=== PATIENT | male | born 1995 | race African-American/Black ===

== ENCOUNTER 2021-10-27 12:51 | Inpatient (IN) | payer OTHER, SELFPAY ==
--- NOTE | 2021-10-27 13:06 | ED.GENADULT ---
HPI - General Adult General Chief complaint: Psychiatric Symptoms Stated complaint: Crisis Time Seen by Provider: 10/27/21 13:06 Source: patient Mode of arrival: ambulatory Limitations: no limitations History of Present Illness HPI narrative: Patient is a 25 year old male presenting to the emergency department today on a section 12 for psychiatric admission. Patient states that he has a history of PTSD and has been off of his medications for 6 months. States that he has had some aggressive thoughts. Patient denies any dizziness, lightheadedness, abdominal pain, nausea, vomiting, fever, chills, blurry vision, double vision, loss of vision, chest pain, difficulty breathing, shortness of breath, back pain, night sweats, pain with urination, increased urinary frequency, increased urinary urgency, blood in his urine or stool, syncope or a near syncopal episode, recent trauma or falls, bowel incontinence, bladder incontinence, bowel retention, bladder retention, or any other complaints at this time. Onset (ago): month(s) Relieving factors: medication Exacerbating factors: none Associated symptoms: denies other symptoms Treatments prior to arrival: none Related Data Home Medications Medication Instructions Recorded Confirmed prazosin 2 mg capsule 1 cap PO BEDTIME 10/27/21 10/27/21 sertraline 100 mg tablet 1 tab PO QAM 10/27/21 10/27/21 trazodone 50 mg tablet 1 tab PO BEDTIME PRN 10/27/21 10/27/21 Allergies Allergy/AdvReac Type Severity Reaction Status Date / Time corn Allergy Hives Verified 10/27/21 13:48 Review of Systems Constitutional: Constitutional: Reports no additional constitutional complaints, Denies chills, Denies fever(s) and Denies night sweats Eyes: Eyes: Reports no additional eye complaints, Denies blurry vision, Denies change in vision, Denies diplopia, Denies eye discharge, Denies loss of vision and Denies eye pain ENT: Denies dizziness Cardiovascular: Cardiovascular: Reports no additional cardiovascular complaints, Denies chest pain, Denies lightheadedness, Denies Loss of Consciousness and Denies dyspnea Respiratory: Respiratory: Reports no additional respiratory complaints and Denies dyspnea Gastrointestinal: Gastrointestinal: Reports no additional gastrointestinal complaints, Denies abdominal pain, Denies melena, Denies hematochezia, Denies change in bowel habits and Denies change in stool character Genitourinary: Genitourinary: Reports no additional male genitourinary complaints, Denies hematuria, Denies oliguria, Denies difficulty urinating, Denies dysuria, Denies urinary frequency, Denies urinary hesitancy, Denies urinary incontinence and Denies urinary urgency Musculoskeletal: Musculoskeletal: Reports no additional musculoskeletal complaints, Denies numbness and Denies tingling Neurologic: Denies dizziness, Denies loss of vision, Denies numbness and Denies tingling Psychiatric: Psychiatric: Reports no additional psychiatric complaints, Reports irritability and Reports homicidal ideation Endocrine: Endocrine: Reports no additional endocrine complaints Hematologic/Lymphatic: Hematologic/Lymphatic: Reports no additional hematologic/lymphatic complaints Allergic/Immunologic: Allergic/Immunologic: Reports no additional allergic/immunologic complaints [facility] Past Medical History Attestation statement: The following information was validated with the patient. Source: old records reviewed Social History Social History Alcohol intake: unknown Patient Tobacco Use Status: Never used Tobacco Smoked in Last 30 Days: No Use of substances other than those prescribed or required for medical reasons: No Last Used Substance: Unknown Any prior treatment program specific to substance use: No Advance Directives: No Advance Directives Information Provided: No Physical Exam ED Vital Signs: Vital Signs - 24 hr 10/27/21 13:29 Temperature 98.3 F Pulse Rate 68 Respiratory Rate 18 Blood Pressure 121/61 Pulse Oximetry 96 BMI result Body Mass Index 45.3 Const General: cooperative, no acute distress, alert and awake Nutritional Appearance: well nourished Orientation/consciousness: patient oriented x3 Limitations: no limitations [facility] Head: Yes normal to inspection and Yes atraumatic Ears: hearing grossly normal bilaterally and external ears normal General nose exam: Normal external nose present, no nasal discharge noted and no epistaxis Face and sinus: Yes normal facial exam, No abrasion and No laceration Mouth: Normal oral and palatal mucosa present, no drooling and no muffled voice Eyes General: appearance normal, both eyes and all related structures Periorbital: periorbital findings normal Eyelids: Yes eyelids normal Conjunctivae: conjunctivae normal Pupils: Equal, round and reactive pupils present EOM: EOMs intact bilaterally Neck Neck: Yes normal visual inspection, Yes full ROM and Yes no lymphadenopathy Chest Chest palpation & inspection: normal inspection of the chest Resp Effort & Inspection: normal respiratory effort and able to speak in complete sentences Auscultation: clear to auscultation bilaterally Cardio Rate: regular rate Rhythm: regular rhythm GI Inspection: Yes normal to inspection Neuro General: patient oriented x3 and moves all extremities Cranial nerves: Yes Equal, round and reactive pupils present Cognition (Neuro): normal cognition Motor exam (neuro): 5/5 motor strength present throughout Sensory Exam: Normal double simultaneous stimulation for sensation Coordination: [id number] test normal Extrem General: Yes normal to inspection, Yes full ROM and Yes capillary refill normal Psych Appearance: grossly normal Mental Status: mental status grossly normal Speech and movement: Normal speech and movement present Affect: Labile affect present Attitude: cooperative Thought process: Normal thought process present Thought content: delusions Insight: Fair insight present (Psych) Medical Decision Making MDM Narrative Medical decision making narrative: Patient is a 25 year old male presenting to the emergency department today with a section 12 for psychiatric placement. Patient's physical exam was unremarkable. Patient's blood work is pending. Patient's urine tox screen was negative. I explained my physical exam findings as well as all test results to the patient. I answered all questions asked by the patient. Patient will be placed under physician observation after labs are completed while the bed search continues. Differential Diagnosis Differential Diagnosis: PTSD Medical Records Medical records reviewed: Yes I reviewed the patient's medical records. Lab Data Lab results reviewed: Yes I reviewed the patient's lab results. Labs: Lab Results 10/27/21 10/27/21 Range/Units 13:54 13:54 Urine Opiates Screen Not Detected (Not Detect) Urine Fentanyl Screen Not Detected (Not Detect) Ur Barbiturates Screen Not Detected (Not Detect) Ur Phencyclidine Scrn Not Detected (Not Detect) Ur Amphetamines Screen Not Detected (Not Detect) U Benzodiazepines Scrn Not Detected (Not Detect) Urine Cocaine Screen Not Detected (Not Detect) U Marijuana (THC) Screen Not Detected (Not Detect) COVID-19 (MAO) Negative (Negative) COVID-19 Clin Com See Note Discharge Plan Discharge Clinical Impression: Post traumatic stress disorder Patient Disposition: Still a Patient Instructions: Post Traumatic Stress Disorder (ED) Prescriptions: No Action trazodone 50 mg tablet 1 tab PO BEDTIME PRN (Reason: Insomnia) 0RF sertraline 100 mg tablet 1 tab PO QAM 0RF prazosin 2 mg capsule 1 cap PO BEDTIME 0RF Print Language: Liberian
[2021-10-27 13:29] VITALS: BP 121/61; PULSE 68; RESP 18; TEMP 36.8; O2SAT 96; BMI 45.3
[2021-10-27 14:30] LABS: COVID-19 Test Negative (Negative); IDNOW Serial# 16C4AD1C
[2021-10-27 14:57] LABS: Amphetamine Screen Urine Not Detected (Not Detect); Barbiturates, Urine Not Detected (Not Detect); Benzodiazepines Screen Urine Not Detected (Not Detect); Cannabinoid Screen Urine Not Detected (Not Detect); Cocaine Screen Urine Not Detected (Not Detect); Fentanyl, urine Not Detected (Not Detect); Opiate Screen Urine Not Detected (Not Detect); Phencyclidine Screen Urine Not Detected (Not Detect)
[2021-10-27 17:37] VITALS: BP 116/61; PULSE 59; RESP 16; TEMP 37.2; O2SAT 99
[2021-10-27 18:01] LABS: MANUAL DIFF FLAG NO
[2021-10-27 18:05] LABS: Basophils Absolute Auto 0.1 X10*3/uL (0.0-0.2); Basophils Percent Auto 0.7 % (0-2); Eosinophils Absolute Auto 0.3 X10*3/uL (0.0-0.4); Eosinophils Percent Auto 4.2 % (0-4); Hematocrit 44.4 % (42.0-52.0); Hemoglobin 14.3 g/dl (14.0-18.0); Imm Gran Abs Auto 0.03 X10*3/uL (0.00-0.03); Imm Gran Pct Auto 0.4 % (0.0-0.4); Lymphocytes Absolute Auto 2.3 X10*3/uL (1.2-4.9); Lymphocytes Percent Auto 31.8 % (20-40); Mean Corpuscular HGB Conc 32.2 g/dl (31.0-36.0); Mean Corpuscular Hemoglobin 28.1 pg (27.0-33.0); Mean Corpuscular Volume 87.2 fL (80.0-98.0); Monocytes Absolute Auto 0.5 X10*3/uL (0.1-1.2); Monocytes Percent Auto 7.3 % (2-11); Neutrophils Absolute Auto 4.1 x10*3/uL (2.0-8.3); Neutrophils Percent Auto 55.6 % (45-73); Platelet Count 232 X10*3/uL (160-400); Red Blood Count 5.09 X10*6/uL (4.60-5.80); Red Cell Distribution Width 11.8 % (11.0-16.0); White Blood Count 7.3 X10*3/uL (4.8-10.8)
[2021-10-27 18:18] LABS: Ethanol < 10 mg/dL
[2021-10-27 18:21] LABS: Alanine Aminotransferase 17 U/L (0-40); Albumin Level 4.3 g/dL (3.5-5.0); Alkaline Phosphatase 66 U/L (39-117); Anion Gap 12 (12-20); Aspartate Amino Transferase 17 U/L (5-37); Blood Urea Nitrogen 19 mg/dL (9-16); Calcium 9.8 mg/dL (8.4-10.2); Carbon Dioxide 24 mmol/L (22-29); Chloride 107 mmol/L (96-108); Creatinine Clr Calc Pharmacy 113.9; Estimated Glomerular Filt Rate > 60; Glucose Random 73 mg/dL (60-115); Potassium 4.2 mmol/L (3.3-5.1); Sodium 139 mmol/L (135-145); Total Protein 7.5 g/dL (6.5-8.0)
[2021-10-27 23:13] VITALS: BP 127/83; PULSE 58; RESP 16; O2SAT 99
[2021-10-27 23:55] VITALS: BP 128/66; PULSE 65; RESP 18; TEMP 36.6; O2SAT 99
[2021-10-28] MEDS: traZODone HCL 50 MG TABLET PO ×2 (00:51→20:18)
[2021-10-28] MEDS: Prazosin HCL 1 MG CAPSULE 2 MG PO ×2 (00:51→20:18)
--- NOTE | 2021-10-28 01:43 | PC.ADMIT ---
Jude is a 25 year old male, who was self referred to the hospital for safety due to increased anger issues and thoughts of HI towards specific people. Patient reported no specific plan was in place. Patient reported poor sleep and apatite Patient reports he feels his impulsively is a concern for him as he does not wish to harm anyone or become involved in any legal issues. He reports his learned coping skills are no longer working for him and he has not been taking medications since June 2021. On the unit patient was cooperative and pleasant during admission. Patient reports mild anxiety and depression. Patient denies any SI, AH, or VH. Patient does still indorse some HI thoughts towards specific people and stated That's why I came into the hospital, to help me stop having these thoughts . Utox-Negative and Covid Negative.
[2021-10-28 08:30] VITALS: BP 116/58; PULSE 74; RESP 18; TEMP 36.3; O2SAT 98
[2021-10-28 08:54] LABS: Cholesterol 154 mg/dL; HDL Cholesterol 43 mg/dL; LDL Cholesterol Calculated 92 mg/dl; Magnesium 2.4 mg/dL (1.6-2.6); Triglycerides 95 mg/dL
[2021-10-28 09:16] LABS: Free T4 (Free Thyroxine) 0.89 ng/dL (0.71-1.85)
[2021-10-28] MEDS: Sertraline HCL 100 MG TABLET PO (09:42)
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
[2021-10-28 18:00] VITALS: BP 132/80; PULSE 76; RESP 16; TEMP 36.7; O2SAT 98
[2021-10-29 03:23] LABS: Estimated Average Glucose 77 mg/dL; Hemoglobin A1c % 4.3 %
[2021-10-29 04:28] LABS: Folate 9.2 ng/mL (> or = 4.0); Vitamin B12 535 pg/mL (200-900)
[2021-10-29] MEDS: Sertraline HCL 50 MG TABLET 150 MG PO (09:11)
[2021-10-29 09:13] VITALS: BP 141/67; PULSE 83; RESP 18; TEMP 36.7; O2SAT 94
--- NOTE | 2021-10-29 14:42 | HO.PSYCHPN ---
Subjective Subjective Date of Service: 10/29/21 Reason For Visit: HI Subjective Notes: Conditional Voluntary Interim History: Pt reports feeling less overwhelmed, he reports improved sleep- but did wake up at 3am and couldn't go back to bed. He continues to endorse depressed mood, anhedonia, low energy. He denies HI. he also denies SI- but worries that it is too soon to tell how much better he is. He feels safe in the unit. No signs of psychosis. Medication Compliance: Yes Side effects from medications: No Review of Systems Review of Systems unremarkable Constitutional: Reports no additional constitutional complaints, Denies chills, Denies fever(s) and Denies night sweats Eyes: Reports no additional eye complaints, Denies blurry vision, Denies change in vision, Denies diplopia, Denies eye discharge, Denies loss of vision and Denies eye pain Denies dizziness Cardiovascular: Reports no additional cardiovascular complaints, Denies chest pain, Denies lightheadedness, Denies Loss of Consciousness and Denies dyspnea Respiratory: Reports no additional respiratory complaints and Denies dyspnea Gastrointestinal: Reports no additional gastrointestinal complaints, Denies abdominal pain, Denies melena, Denies hematochezia, Denies change in bowel habits and Denies change in stool character Genitourinary: Reports no additional male genitourinary complaints, Denies hematuria, Denies oliguria, Denies difficulty urinating, Denies dysuria, Denies urinary frequency, Denies urinary hesitancy, Denies urinary incontinence and Denies urinary urgency Musculoskeletal: Reports no additional musculoskeletal complaints, Denies numbness and Denies tingling Denies dizziness, Denies loss of vision, Denies numbness and Denies tingling Psychiatric: Reports no additional psychiatric complaints, Reports irritability and Reports homicidal ideation Endocrine: Reports no additional endocrine complaints Hematologic/Lymphatic: Reports no additional hematologic/lymphatic complaints Allergic/Immunologic: Reports no additional allergic/immunologic complaints Mental Status Exam Mental Status Exam Narrative: Alert, oriented x 3. Speech: clear, normal rate/rhyth. volume, spontaneous. No psychomotor agitation or retardation noted. TP: linear. TC: no signs of psychosis. Delusions: none. No VH/AH. Pleasant and engaged. Appropriately dressed and good hygiene. Endorses some anxiety and low mood. No SI. Endorses intermittent irritability thoughts of hurting others but not inside of the hospital. Feels supported. No psychosis. Insight and judgment good Diagnostics Vital Signs (24Hr): Vital Signs - 24 hr 10/28/21 18:00 10/29/21 09:13 Temperature 98.0 F 98.0 F Pulse Rate 76 83 Respiratory Rate 16 18 Blood Pressure 132/80 141/67 H Pulse Oximetry 98 94 BMI result Body Mass Index 45.3 Labs Results: 10/27/21 17:57 10/27/21 17:57 Labs: Laboratory Results - last 48 hr 10/27/21 10/27/21 10/27/21 17:57 17:57 17:57 WBC 7.3 RBC 5.09 Hgb 14.3 Hct 44.4 MCV 87.2 MCH 28.1 MCHC 32.2 RDW 11.8 Plt Count 232 MPV 9.0 L Immature Gran % (Auto) 0.4 Neut % (Auto) 55.6 Lymph % (Auto) 31.8 [place] % (Auto) 7.3 Eos % (Auto) 4.2 H Baso % (Auto) 0.7 Lymph # (Auto) 2.3 [place] # (Auto) 0.5 Eos # (Auto) 0.3 Baso # (Auto) 0.1 Abs Immat Gran (auto) 0.03 Absolute Neuts (auto) 4.1 Absolute Nucleated RBC 0.000 Nucleated RBC % (auto) 0.0 Sodium 139 Potassium 4.2 Chloride 107 Carbon Dioxide 24 Anion Gap 12 BUN 19 H Creatinine 1.15 Estim Creat Clear Calc 113.9 Estimated GFR > 60 Random Glucose 73 Estimat Average Glucose Hemoglobin A1c % Calcium 9.8 Magnesium Total Bilirubin 1.0 AST 17 ALT 17 Alkaline Phosphatase 66 Total Protein 7.5 Albumin 4.3 Triglycerides Cholesterol LDL Cholesterol, Calc HDL Cholesterol Vitamin B12 Folate TSH Free T4 Ethyl Alcohol < 10 10/28/21 10/28/21 10/28/21 08:07 08:07 08:07 WBC RBC Hgb Hct MCV MCH MCHC RDW Plt Count MPV Immature Gran % (Auto) Neut % (Auto) Lymph % (Auto) [place] % (Auto) Eos % (Auto) Baso % (Auto) Lymph # (Auto) [place] # (Auto) Eos # (Auto) Baso # (Auto) Abs Immat Gran (auto) Absolute Neuts (auto) Absolute Nucleated RBC Nucleated RBC % (auto) Sodium Potassium Chloride Carbon Dioxide Anion Gap BUN Creatinine Estim Creat Clear Calc Estimated GFR Random Glucose Estimat Average Glucose 77 Hemoglobin A1c % 4.3 Calcium Magnesium 2.4 Total Bilirubin AST ALT Alkaline Phosphatase Total Protein Albumin Triglycerides 95 Cholesterol 154 LDL Cholesterol, Calc 92 HDL Cholesterol 43 Vitamin B12 535 Folate 9.2 TSH 0.40 Free T4 0.89 Ethyl Alcohol Medications Medications Current Medications Acetaminophen (Acetaminophen 325 Mg Tablet) 650 mg PO Q6H PRN PRN Reason: Headache/Pain Mild Scale (1-3) Al Hydroxide/Mg Hydroxide (Magnesium Hydrox/Alum Hydrox 30 Ml Oral.Susp) 30 ml PO Q6H PRN PRN Reason: Heartburn/Nausea Hydroxyzine HCl (Hydroxyzine Hcl 25 Mg Tablet) 25 mg PO Q6H PRN PRN Reason: Anxiety Magnesium Hydroxide (Milk Of Magnesia 30 Ml Oral.Susp) 30 ml PO DAILY PRN PRN Reason: Constipation Prazosin HCl (Prazosin Hcl 1 Mg Capsule) 2 mg PO BEDTIME MEHRDAD; Protocol Last Admin: 10/28/21 20:18 Dose: 2 mg Documented by: Sertraline HCl (Sertraline Hcl 50 Mg Tablet) 150 mg PO DAILY MEHRDAD Last Admin: 10/29/21 09:11 Dose: 150 mg Documented by: Trazodone HCl (Trazodone Hcl 50 Mg Tablet) 50 mg PO BEDTIME PRN PRN Reason: Insomnia Last Admin: 10/28/21 20:18 Dose: 50 mg Documented by: Allergies Allergies Allergy/AdvReac Type Severity Reaction Status Date / Time corn Allergy Hives Verified 10/27/21 13:48 Assessment & Plan Assessment & Plan (1) Post traumatic stress disorder: Status: Acute Code(s): F43.10 - Post-traumatic stress disorder, unspecified Assessment and Plan: presents with history PTSD and recent lower mood, worsening anxiety, worsening hypervigilance, irritability and homicidal thoughts. contributing factors are being off medications, reasonably new job and relationship ending. Is engaged and does want treatment. Appears to show some response in the past to prazosin 2mg and sertraline 150mg. May also benefit from low-dose Seroquel for mood forward/ anxiety and PTSD symptoms. He would like to discuss this with his primary team. PLAN 1. continue sertraline 150mg po daily, prazosin 2mg po qhs. trazodone 50mg po qhs. 2. obtain collateral information 3. aftercare planning- once stable wants to continue OP psych tx. I spent minutes with the patient and/or on the patient floor today, greater than?50% of which was spent counseling/coordinating care. Reason for contiued inpatient stay Substantial Risk for: harm to self
[2021-10-29 18:00] VITALS: BP 140/76; PULSE 79; RESP 18; TEMP 36.9; O2SAT 96
--- NOTE | 2021-10-29 19:05 | PC.NURSE ---
Patient offered flu vaccine to which he declined.
[2021-10-29] MEDS: Prazosin HCL 1 MG CAPSULE 2 MG PO (20:15)
[2021-10-29] MEDS: traZODone HCL 50 MG TABLET PO (20:15)
[2021-10-30 08:00] VITALS: BP 125/76; PULSE 72; RESP 16; TEMP 36.6; O2SAT 94
[2021-10-30] MEDS: Sertraline HCL 50 MG TABLET 150 MG PO (09:07)
[2021-10-30] MEDS: Magnesium Hydrox/Alum Hydrox 30 ML ORAL.SUSP PO (13:04)
--- NOTE | 2021-10-30 14:44 | HO.PSYCHPN ---
Subjective Subjective Date of Service: 10/30/21 Reason For Visit: HI Subjective Notes: Conditional Voluntary Interim History: Pt reports feeling better, in that he is less depressed, no SI/HI. No signs of VH/AH. He reports sleeping and eating well. He reports he spoke with sister who is very supportive. He denies any side effects. Plan for d/c Friday continue OP psych appointments. Medication Compliance: Yes Side effects from medications: No Review of Systems Review of Systems unremarkable Constitutional: Reports no additional constitutional complaints, Denies chills, Denies fever(s) and Denies night sweats Eyes: Reports no additional eye complaints, Denies blurry vision, Denies change in vision, Denies diplopia, Denies eye discharge, Denies loss of vision and Denies eye pain Denies dizziness Cardiovascular: Reports no additional cardiovascular complaints, Denies chest pain, Denies lightheadedness, Denies Loss of Consciousness and Denies dyspnea Respiratory: Reports no additional respiratory complaints and Denies dyspnea Gastrointestinal: Reports no additional gastrointestinal complaints, Denies abdominal pain, Denies melena, Denies hematochezia, Denies change in bowel habits and Denies change in stool character Genitourinary: Reports no additional male genitourinary complaints, Denies hematuria, Denies oliguria, Denies difficulty urinating, Denies dysuria, Denies urinary frequency, Denies urinary hesitancy, Denies urinary incontinence and Denies urinary urgency Musculoskeletal: Reports no additional musculoskeletal complaints, Denies numbness and Denies tingling Denies dizziness, Denies loss of vision, Denies numbness and Denies tingling Psychiatric: Reports no additional psychiatric complaints, Reports irritability and Reports homicidal ideation Endocrine: Reports no additional endocrine complaints Hematologic/Lymphatic: Reports no additional hematologic/lymphatic complaints Allergic/Immunologic: Reports no additional allergic/immunologic complaints Mental Status Exam Mental Status Exam Narrative: Alert, oriented x 3. Speech: clear, normal rate/rhyth. volume, spontaneous. No psychomotor agitation or retardation noted. TP: linear. TC: no signs of psychosis. Delusions: none. No VH/AH. Pleasant and engaged. Appropriately dressed and good hygiene. Endorses some anxiety and low mood. No SI. Endorses intermittent irritability thoughts of hurting others but not inside of the hospital. Feels supported. No psychosis. Insight and judgment good Diagnostics Vital Signs (24Hr): Vital Signs - 24 hr 10/29/21 18:00 10/30/21 08:00 Temperature 98.4 F 97.9 F Pulse Rate 79 72 Respiratory Rate 18 16 Blood Pressure 140/76 H 125/76 Pulse Oximetry 96 94 BMI result Body Mass Index 45.3 Labs Results: 10/27/21 17:57 10/27/21 17:57 Labs: Laboratory Results - last 48 hr 10/28/21 10/28/21 08:07 08:07 Estimat Average Glucose 77 Hemoglobin A1c % 4.3 Vitamin B12 535 Folate 9.2 Medications Medications Current Medications Acetaminophen (Acetaminophen 325 Mg Tablet) 650 mg PO Q6H PRN PRN Reason: Headache/Pain Mild Scale (1-3) Al Hydroxide/Mg Hydroxide (Magnesium Hydrox/Alum Hydrox 30 Ml Oral.Susp) 30 ml PO Q6H PRN PRN Reason: Heartburn/Nausea Last Admin: 10/30/21 13:04 Dose: 30 ml Documented by: Hydroxyzine HCl (Hydroxyzine Hcl 25 Mg Tablet) 25 mg PO Q6H PRN PRN Reason: Anxiety Magnesium Hydroxide (Milk Of Magnesia 30 Ml Oral.Susp) 30 ml PO DAILY PRN PRN Reason: Constipation Prazosin HCl (Prazosin Hcl 1 Mg Capsule) 2 mg PO BEDTIME MEHRDAD; Protocol Last Admin: 10/29/21 20:15 Dose: 2 mg Documented by: Sertraline HCl (Sertraline Hcl 50 Mg Tablet) 150 mg PO DAILY MEHRDAD Last Admin: 10/30/21 09:07 Dose: 150 mg Documented by: Trazodone HCl (Trazodone Hcl 50 Mg Tablet) 50 mg PO BEDTIME PRN PRN Reason: Insomnia Last Admin: 10/29/21 20:15 Dose: 50 mg Documented by: Allergies Allergies Allergy/AdvReac Type Severity Reaction Status Date / Time corn Allergy Hives Verified 10/27/21 13:48 Assessment & Plan Assessment & Plan (1) Post traumatic stress disorder: Status: Acute Code(s): F43.10 - Post-traumatic stress disorder, unspecified Assessment and Plan: presents with history PTSD and recent lower mood, worsening anxiety, worsening hypervigilance, irritability and homicidal thoughts. contributing factors are being off medications, reasonably new job and relationship ending. Is engaged and does want treatment. Appears to show some response in the past to prazosin 2mg and sertraline 150mg. May also benefit from low-dose Seroquel for mood forward/ anxiety and PTSD symptoms. He would like to discuss this with his primary team. PLAN 1. continue sertraline 150mg po daily, prazosin 2mg po qhs. trazodone 50mg po qhs. 2. obtain collateral information 3. aftercare planning- once stable wants to continue OP psych tx. 10/30- continue current medications. d/c 11/02/21 with OP psych appointments, will return home. I spent minutes with the patient and/or on the patient floor today, greater than?50% of which was spent counseling/coordinating care. Reason for contiued inpatient stay Substantial Risk for: rapid decompensation
[2021-10-30 21:00] VITALS: BP 135/87; PULSE 78; RESP 18; TEMP 36.8; O2SAT 98
[2021-10-30] MEDS: Prazosin HCL 1 MG CAPSULE 2 MG PO (22:12)
[2021-10-30] MEDS: traZODone HCL 50 MG TABLET PO (22:12)
[2021-10-31 09:29] VITALS: BP 118/71; PULSE 110; RESP 16; TEMP 36.6; O2SAT 96
[2021-10-31] MEDS: Sertraline HCL 50 MG TABLET 150 MG PO (09:30)
--- NOTE | 2021-10-31 15:53 | HO.PSYCHPN ---
Subjective Subjective Date of Service: 10/31/21 Reason For Visit: HI Subjective Notes: Conditional Voluntary Interim History: Pt presents as brigth, non labile. He reports significant improvement in depressed mood. He reports he is sleeping and eating well. He denies SI/HI. He has been visible in the unit, no behavioral concerns. Medication Compliance: Yes Side effects from medications: No Review of Systems Review of Systems unremarkable Constitutional: Reports no additional constitutional complaints, Denies chills, Denies fever(s) and Denies night sweats Eyes: Reports no additional eye complaints, Denies blurry vision, Denies change in vision, Denies diplopia, Denies eye discharge, Denies loss of vision and Denies eye pain Denies dizziness Cardiovascular: Reports no additional cardiovascular complaints, Denies chest pain, Denies lightheadedness, Denies Loss of Consciousness and Denies dyspnea Respiratory: Reports no additional respiratory complaints and Denies dyspnea Gastrointestinal: Reports no additional gastrointestinal complaints, Denies abdominal pain, Denies melena, Denies hematochezia, Denies change in bowel habits and Denies change in stool character Genitourinary: Reports no additional male genitourinary complaints, Denies hematuria, Denies oliguria, Denies difficulty urinating, Denies dysuria, Denies urinary frequency, Denies urinary hesitancy, Denies urinary incontinence and Denies urinary urgency Musculoskeletal: Reports no additional musculoskeletal complaints, Denies numbness and Denies tingling Denies dizziness, Denies loss of vision, Denies numbness and Denies tingling Psychiatric: Reports no additional psychiatric complaints, Reports irritability and Reports homicidal ideation Endocrine: Reports no additional endocrine complaints Hematologic/Lymphatic: Reports no additional hematologic/lymphatic complaints Allergic/Immunologic: Reports no additional allergic/immunologic complaints Mental Status Exam Mental Status Exam Narrative: Alert, oriented x 3. Speech: clear, normal rate/rhyth. volume, spontaneous. No psychomotor agitation or retardation noted. TP: linear. TC: no signs of psychosis. Delusions: none. No VH/AH. Pleasant and engaged. Appropriately dressed and good hygiene. Endorses some anxiety and low mood. No SI. Endorses intermittent irritability thoughts of hurting others but not inside of the hospital. Feels supported. No psychosis. Insight and judgment good Diagnostics Vital Signs (24Hr): Vital Signs - 24 hr 10/30/21 21:00 10/31/21 09:29 Temperature 98.3 F 97.8 F Pulse Rate 78 110 H Respiratory Rate 18 16 Blood Pressure 135/87 118/71 Pulse Oximetry 98 96 BMI result Body Mass Index 45.3 Labs Results: 10/27/21 17:57 10/27/21 17:57 Medications Medications Current Medications Acetaminophen (Acetaminophen 325 Mg Tablet) 650 mg PO Q6H PRN PRN Reason: Headache/Pain Mild Scale (1-3) Al Hydroxide/Mg Hydroxide (Magnesium Hydrox/Alum Hydrox 30 Ml Oral.Susp) 30 ml PO Q6H PRN PRN Reason: Heartburn/Nausea Last Admin: 10/30/21 13:04 Dose: 30 ml Documented by: Hydroxyzine HCl (Hydroxyzine Hcl 25 Mg Tablet) 25 mg PO Q6H PRN PRN Reason: Anxiety Magnesium Hydroxide (Milk Of Magnesia 30 Ml Oral.Susp) 30 ml PO DAILY PRN PRN Reason: Constipation Prazosin HCl (Prazosin Hcl 1 Mg Capsule) 2 mg PO BEDTIME MEHRDAD; Protocol Last Admin: 10/30/21 22:12 Dose: 2 mg Documented by: Sertraline HCl (Sertraline Hcl 50 Mg Tablet) 150 mg PO DAILY MEHRDAD Last Admin: 10/31/21 09:30 Dose: 150 mg Documented by: Trazodone HCl (Trazodone Hcl 50 Mg Tablet) 50 mg PO BEDTIME PRN PRN Reason: Insomnia Last Admin: 10/30/21 22:12 Dose: 50 mg Documented by: Allergies Allergies Allergy/AdvReac Type Severity Reaction Status Date / Time corn Allergy Hives Verified 10/27/21 13:48 Assessment & Plan Assessment & Plan (1) Post traumatic stress disorder: Status: Acute Code(s): F43.10 - Post-traumatic stress disorder, unspecified Assessment and Plan: presents with history PTSD and recent lower mood, worsening anxiety, worsening hypervigilance, irritability and homicidal thoughts. contributing factors are being off medications, reasonably new job and relationship ending. Is engaged and does want treatment. Appears to show some response in the past to prazosin 2mg and sertraline 150mg. May also benefit from low-dose Seroquel for mood forward/ anxiety and PTSD symptoms. He would like to discuss this with his primary team. PLAN 1. continue sertraline 150mg po daily, prazosin 2mg po qhs. trazodone 50mg po qhs. 2. obtain collateral information 3. aftercare planning- once stable wants to continue OP psych tx. 10/30- continue current medications. d/c 11/02/21 with OP psych appointments, will return home. 10/31- continue current meds- d/c Friday. I spent minutes with the patient and/or on the patient floor today, greater than?50% of which was spent counseling/coordinating care. Reason for contiued inpatient stay Substantial Risk for: stable for discharge
[2021-10-31 20:30] VITALS: BP 132/79; PULSE 71; RESP 18; TEMP 36.6; O2SAT 100
[2021-10-31 22:05] VITALS: BP 143/67; PULSE 76; RESP 18
[2021-10-31] MEDS: traZODone HCL 50 MG TABLET PO (22:07)
[2021-10-31] MEDS: Prazosin HCL 1 MG CAPSULE 2 MG PO (22:07)
[2021-11-01] MEDS: Sertraline HCL 50 MG TABLET 150 MG PO (08:29)
[2021-11-01 09:00] VITALS: BP 134/62; PULSE 78; RESP 18; TEMP 36.6; O2SAT 98
[2021-11-01 10:00] VITALS: BMI 36.2
--- NOTE | 2021-11-01 10:52 | P.PNPSI_ITS ---
Subjective Subjective Date of Service: 11/01/21 Reason For Visit: HI Subjective Notes: Conditional Voluntary Interim History: Pt presents with bright affect. He continues to report decreased symptoms of depression. he denies SI/HI. He reports sleeping better. He is hoping to go back to work soon. He has been visible in the unit, social with select peers. No behavioral concerns. reported less appetite in past 2 days but no additional symptoms such as nausea or other GI- advised to monitor. Medication Compliance: Yes Side effects from medications: No Review of Systems Review of Systems unremarkable Constitutional: Reports no additional constitutional complaints, Denies chills, Denies fever(s) and Denies night sweats Eyes: Reports no additional eye complaints, Denies blurry vision, Denies change in vision, Denies diplopia, Denies eye discharge, Denies loss of vision and Denies eye pain Denies dizziness Cardiovascular: Reports no additional cardiovascular complaints, Denies chest pain, Denies lightheadedness, Denies Loss of Consciousness and Denies dyspnea Respiratory: Reports no additional respiratory complaints and Denies dyspnea Gastrointestinal: Reports no additional gastrointestinal complaints, Denies abdominal pain, Denies melena, Denies hematochezia, Denies change in bowel habits and Denies change in stool character Genitourinary: Reports no additional male genitourinary complaints, Denies hematuria, Denies oliguria, Denies difficulty urinating, Denies dysuria, Denies urinary frequency, Denies urinary hesitancy, Denies urinary incontinence and Denies urinary urgency Musculoskeletal: Reports no additional musculoskeletal complaints, Denies numbness and Denies tingling Denies dizziness, Denies loss of vision, Denies numbness and Denies tingling Psychiatric: Reports no additional psychiatric complaints, Reports irritability and Reports homicidal ideation Endocrine: Reports no additional endocrine complaints Hematologic/Lymphatic: Reports no additional hematologic/lymphatic complaints Allergic/Immunologic: Reports no additional allergic/immunologic complaints Mental Status Exam Mental Status Exam Narrative: Alert, oriented x 3. Speech: clear, normal rate/rhyth. volume, spontaneous. No psychomotor agitation or retardation noted. TP: linear. TC: no signs of psychosis. Delusions: none. No VH/AH. Pleasant and engaged. Appropriately michelle ssed and good hygiene. Endorses some anxiety and low mood. No SI. Endorses intermittent irritability thoughts of hurting others but not inside of the hospital. Feels supported. No psychosis. Insight and judgment good Diagnostics Vital Signs (24Hr): Vital Signs - 24 hr 11/01/21 09:00 11/01/21 18:00 Temperature 97.9 F 97.8 F Pulse Rate 78 82 Respiratory Rate 18 18 Blood Pressure 134/62 131/74 Pulse Oximetry 98 97 BMI result Body Mass Index 36.2 Labs Results: 10/27/21 17:57 10/27/21 17:57 Medications Medications Current Medications Acetaminophen (Acetaminophen 325 Mg Tablet) 650 mg PO Q6H PRN PRN Reason: Headache/Pain Mild Scale (1-3) Al Hydroxide/Mg Hydroxide (Magnesium Hydrox/Alum Hydrox 30 Ml Oral.Susp) 30 ml PO Q6H PRN PRN Reason: Heartburn/Nausea Last Admin: 10/30/21 13:04 Dose: 30 ml Documented by: Hydroxyzine HCl (Hydroxyzine Hcl 25 Mg Tablet) 25 mg PO Q6H PRN PRN Reason: Anxiety Magnesium Hydroxide (Milk Of Magnesia 30 Ml Oral.Susp) 30 ml PO DAILY PRN PRN Reason: Constipation Prazosin HCl (Prazosin Hcl 1 Mg Capsule) 2 mg PO BEDTIME MEHRDAD; Protocol Last Admin: 11/01/21 21:55 Dose: 2 mg Documented by: Sertraline HCl (Sertraline Hcl 50 Mg Tablet) 150 mg PO DAILY MEHRDAD Last Admin: 11/01/21 08:29 Dose: 150 mg Documented by: Trazodone HCl (Trazodone Hcl 50 Mg Tablet) 50 mg PO BEDTIME PRN PRN Reason: Insomnia Last Admin: 11/01/21 21:56 Dose: 50 mg Documented by: Allergies Allergies Allergy/AdvReac Type Severity Reaction Status Date / Time corn Allergy Hives Verified 10/27/21 13:48 Assessment & Plan Assessment & Plan (1) Post traumatic stress disorder: Status: Acute Code(s): F43.10 - Post-traumatic stress disorder, unspecified Assessment and Plan: presents with history PTSD and recent lower mood, worsening anxiety, worsening hypervigilance, irritability and homicidal thoughts. contributing factors are being off medications, reasonably new job and relationship ending. Is engaged and does want treatment. Appears to show some response in the past to prazosin 2mg and sertraline 150mg. May also benefit from low-dose Seroquel for mood forward/ anxiety and PTSD symptoms. He would like to discuss this with his primary team. PLAN 1. continue sertraline 150mg po daily, prazosin 2mg po qhs. trazodone 50mg po qhs. 2. obtain collateral information 3. aftercare planning- once stable wants to continue OP psych tx. 10/30- continue current medications. d/c 11/02/21 with OP psych appointments, will return home. 10/31- continue current meds- d/c Friday. I spent minutes with the patient and/or on the patient floor today, greater than?50% of which was spent counseling/coordinating care. Reason for contiued inpatient stay Substantial Risk for: harm to self
[2021-11-01 18:00] VITALS: BP 131/74; PULSE 82; RESP 18; TEMP 36.6; O2SAT 97
[2021-11-01] MEDS: Prazosin HCL 1 MG CAPSULE 2 MG PO (21:55)
[2021-11-01] MEDS: traZODone HCL 50 MG TABLET PO (21:56)
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
[2021-11-02 09:01] VITALS: BP 121/77; PULSE 88; RESP 16; TEMP 36.9; O2SAT 97
[2021-11-02] MEDS: Sertraline HCL 50 MG TABLET 150 MG PO (09:04)
== END 2021-11-02 16:00 | disposition home or self-care (01) | DRG 756 ==
LOC: HO.ED 17:30 → HO.PADLT16 23:48
PROVIDERS: Physician Assistant Medical; Admitting Provider Registered Nurse; Emergency Provider Emergency Medicine Emergency Medical Services; Visit Provider Social Worker
DX: F41.9 Anxiety disorder, unspecified (principal); R45.850 Homicidal ideations; F43.10 Post-traumatic stress disorder, unspecified; Z91.51 Personal history of suicidal behavior; Z65.3 Problems related to other legal circumstances; Z20.822 Contact with and (suspected) exposure to COVID-19; Z79.899 Other long term (current) drug therapy
CPT/HCPCS: 36415; 80053; 80061; 80307; 82077; 82607; 82746; 83036; 83735; 84439; 84443; 85025; 87635; 99285